=== PATIENT | female | born 1945 | race Caucasian/White ===

== ENCOUNTER 2017-01-11 17:02 | Inpatient (IN) | payer MEDICARE ==
[~2017-01-11] VITALS: Ht 152.4 cm; Wt 79.1 kg
[~2017-01-11 17:02] MED LIST: AMLO5TAB2 PO; BUPR150T73 PO; CA C1TAB63 PO; ERGO400T2 PO; LEVO200T5 PO; LISI40TA PO; MULT-257 PO; NABU500T PO; OMEG1CAP23 PO; OMEP-110 PO; POTA99TA2 PO; VIT1TABL32 PO; VITA10004 PO
[2017-01-11] MEDS ORDERED: SODIUM CHLORIDE 0.9% 1,000ML IVBOLUS ONE (17:30)
[2017-01-11 17:51] LABS: HEMATOCRIT 43.6 % (34.6-47.8); HEMOGLOBIN 14.3 g/dL (11.7-16.4); WHITE BLOOD COUNT 9.6 x10^3/uL (3.4-10)
[2017-01-11 18:02] LABS: ASPARTATE AMINO TRANSFERASE 23 U/L (15-37); BLOOD UREA NITROGEN 13 mg/dL (7-18)
[2017-01-11] MEDS ORDERED: ONDANSETRON 2MG/ML, 2ML IVPush PRN (20:30)
[2017-01-11] MEDS ORDERED: CEFTRIAXONE PMX 1GM/50ML 50 ML IV ONE (20:30)
[2017-01-11] MEDS ORDERED: LEVOTHYROXINE 100 MCG INJ IVPush ONE (20:30)
[2017-01-11] MEDS: SODIUM CHLORIDE 0.9% 1,000 ML IV SCH (21:38)
[2017-01-11] MEDS ORDERED: LEVOTHYROXINE MC SCH (22:30)
[2017-01-11] MEDS: ENOXAPARIN 40 MG/0.4 ML SQ SCH (22:45)
[2017-01-11 22:54] VITALS: BP 153/85
[2017-01-12 00:59] VITALS: BP 156/87
[2017-01-12] MEDS: HYDROmorphone 2 MG/ML, 1ML IVPush PRN ×2 (01:07→21:29)
[2017-01-12 05:07] LABS: HEMATOCRIT 38.8 % (34.6-47.8); HEMOGLOBIN 13.1 g/dL (11.7-16.4); WHITE BLOOD COUNT 8.5 x10^3/uL (3.4-10)
[2017-01-12 05:12] LABS: BLOOD UREA NITROGEN 10 mg/dL (7-18)
[2017-01-12] MEDS ORDERED: LEVOTHYROXINE 200 MCG TABLET PO SCH (06:00)
[2017-01-12] MEDS: PANTOPRAZOLE 40 MG IV IVPush SCH (07:30)
[2017-01-12] MEDS: SODIUM CHLORIDE 0.9% 1,000 ML IV SCH (08:08)
[2017-01-12 08:24] VITALS: BP 164/96
[2017-01-12] MEDS ORDERED: LEVOTHYROXINE 100 MCG INJ IVPush SCH (09:00)
[2017-01-12 15:55] VITALS: BP 142/88
[2017-01-12] MEDS: BUPROPION SR 150 MG TABLET PO SCH ×2 (16:00→21:00)
[2017-01-12 19:53] VITALS: BP 150/82
[2017-01-12] MEDS: NABUMETONE 500 MG TABLET PO SCH (21:20)
[2017-01-12] MEDS ORDERED: HYDROmorphone 1 MG/ML, 1ML ONE (21:24)
[2017-01-13] MEDS: ENOXAPARIN 40 MG/0.4 ML SQ SCH ×2 (00:05→22:30)
[2017-01-13 03:35] VITALS: BP 158/80
[2017-01-13] MEDS ORDERED: FLU VACC QS2016-17 (36MOS+)UP/PF 0.5 ML IM-VACC ONE (04:00)
[2017-01-13 05:39] LABS: HEMATOCRIT 40.1 % (34.6-47.8); HEMOGLOBIN 13.3 g/dL (11.7-16.4); WHITE BLOOD COUNT 9.4 x10^3/uL (3.4-10)
[2017-01-13 05:41] LABS: BLOOD UREA NITROGEN 18 mg/dL (7-18)
[2017-01-13] MEDS: PANTOPRAZOLE 40 MG IV IVPush SCH (07:30)
[2017-01-13 08:42] VITALS: BP 149/87
[2017-01-13] MEDS: BUPROPION SR 150 MG TABLET PO SCH ×3 (09:00→21:00)
[2017-01-13] MEDS: MULTIVITAMIN 1 TABLET PO SCH ×2 (09:00→10:11)
[2017-01-13] MEDS: LEVOTHYROXINE 100 MCG INJ IVPush SCH (10:08)
[2017-01-13] MEDS: NABUMETONE 500 MG TABLET PO SCH ×2 (10:10→21:30)
[2017-01-13] MEDS: AMLODIPINE 5 MG TABLET PO SCH (10:11)
[2017-01-13] MEDS: OMEGA-3/FISH OIL CAPSULE PO SCH (10:11)
[2017-01-13] MEDS: CHOLECALCIFEROL 400 UNITS TABLET PO SCH (10:11)
[2017-01-13 12:57] VITALS: BP 148/80
[2017-01-13] MEDS ORDERED: FLU VACC QS2017-18 (36MOS+) UP/PF 0.5 ML IM-VACC ONE (15:00)
[2017-01-13] MEDS: LISINOPRIL 20 MG TABLET PO SCH (15:49)
[2017-01-13 19:40] VITALS: BP 126/77
[2017-01-13] MEDS: HYDROmorphone 2 MG/ML, 1ML IVPush PRN (21:31)
[2017-01-14 00:55] VITALS: BP 144/84
[2017-01-14 04:57] LABS: HEMATOCRIT 39.7 % (34.6-47.8); HEMOGLOBIN 13.2 g/dL (11.7-16.4)
[2017-01-14 05:03] LABS: BLOOD UREA NITROGEN 16 mg/dL (7-18)
[2017-01-14 06:50] VITALS: BP 138/92
[2017-01-14] MEDS: PANTOPRAZOLE 40 MG IV IVPush SCH (07:30)
[2017-01-14] MEDS: NABUMETONE 500 MG TABLET PO SCH (08:45)
[2017-01-14] MEDS: OMEGA-3/FISH OIL CAPSULE PO SCH (08:45)
[2017-01-14] MEDS: MULTIVITAMIN 1 TABLET PO SCH ×2 (08:45→08:48)
[2017-01-14] MEDS: LISINOPRIL 20 MG TABLET PO SCH (08:45)
[2017-01-14] MEDS: AMLODIPINE 5 MG TABLET PO SCH (09:02)
[2017-01-14] MEDS: BUPROPION SR 150 MG TABLET PO SCH ×2 (09:02→15:32)
[2017-01-14] MEDS: LEVOTHYROXINE 100 MCG INJ IVPush SCH (09:02)
[2017-01-14] MEDS: CHOLECALCIFEROL 400 UNITS TABLET PO SCH (09:02)
[2017-01-14 15:05] VITALS: BP 131/85
[2017-01-15] MEDS ORDERED: PANTOPROZOLE 40MG TABLET PO SCH (07:30)
== END 2017-01-14 16:30 | DRG 80 ==
LOC: ED 18:23 → EDIP 20:22 → 4WST 22:07
PROVIDERS: ADMIT Internal Medicine; ATTEND Internal Medicine
DX: E03.5 Myxedema coma (principal); R53.2 Functional quadriplegia; I11.9 Hypertensive heart disease without heart failure; R62.7 Adult failure to thrive; K21.9 Gastro-esophageal reflux disease without esophagitis; M79.7 Fibromyalgia; M43.06 Spondylolysis, lumbar region; Z86.73 Personal history of transient ischemic attack (TIA), and cerebral infarction without residual deficits; Z90.49 Acquired absence of other specified parts of digestive tract; Z88.8 Allergy status to other drugs, medicaments and biological substances
CPT/HCPCS: 36415; 70450; 71010; 80048; 80053; 81001; 82040; 82533; 83735; 84439; 84443; 85025; 86140; 87040; 87086; 93005; 96361; 96365; 96375; J0696; J1170; J1650; J7030

== ENCOUNTER 2017-04-03 01:56 | Inpatient (IN) | payer MEDICARE ==
[~2017-04-03] VITALS: Ht 154.9 cm; Wt 73.7 kg
[2017-04-03] MEDS ORDERED: SODIUM CHLORIDE 0.9% 1,000 ML IV ONE (02:01)
[2017-04-03] MEDS ORDERED: MORPHINE SULFATE 4 MG/ML, 1ML ONE (02:18)
[2017-04-03] MEDS ORDERED: ONDANSETRON 2MG/ML, 2ML ONE (02:18)
[2017-04-03 02:30] LABS: HEMATOCRIT 45.9 % (34.6-47.8); HEMOGLOBIN 15.1 g/dL (11.7-16.4); WHITE BLOOD COUNT 13.8 x10^3/uL (3.4-10)
[2017-04-03] MEDS ORDERED: SODIUM CHLORIDE FLUSH 10ML SYR IVF ONE (02:30)
[2017-04-03] MEDS ORDERED: MORPHINE SULFATE 4 MG/ML, 1ML IVPush PRN (02:30)
[2017-04-03] MEDS ORDERED: ONDANSETRON 2MG/ML, 2ML IVPush ONE (02:30)
[2017-04-03] MEDS ORDERED: SODIUM CHLORIDE 0.9% 1,000ML IVBOLUS ONE (02:30)
[2017-04-03 02:47] LABS: IS PT STATUS REG ER OR PRE ER? YES
[2017-04-03 03:04] LABS: ASPARTATE AMINO TRANSFERASE 22 U/L (15-37); BLOOD UREA NITROGEN 30 mg/dL (7-18)
[2017-04-03] MEDS ORDERED: OMNIPAQUE 350 MG/ML, 100ML BOTTLE ONE (03:41)
[2017-04-03 06:49] VITALS: BP_SYST 151
[2017-04-03] MEDS ORDERED: KETOROLAC 30 MG/1 ML IVPush PRN (08:00)
[2017-04-03] MEDS ORDERED: BISACODYL 10 MG SUPP PR PRN (08:00)
[2017-04-03] MEDS ORDERED: ONDANSETRON 2MG/ML, 2ML IVPush PRN (08:00)
[2017-04-03] MEDS ORDERED: ACETAMINOPHEN 325 MG TABLET PO PRN (08:00)
[2017-04-03] MEDS ORDERED: LABETALOL 5MG/ML, 20ML IVPush PRN (08:00)
[2017-04-03 08:10] VITALS: BP 143/81
[2017-04-03] MEDS ORDERED: METHOCARBAMOL 1,000 MG in DEXTROSE 5% 100 ML IV ONE (10:00)
[2017-04-03] MEDS: VIT A C HOMEMEDPO SCH (10:25)
[2017-04-03] MEDS: LUTEIN HOMEMEDPO SCH (10:25)
[2017-04-03] MEDS: [UNRECOGNIZED DRUG - OTHER] HOMEMEDPO SCH (10:25)
[2017-04-03] MEDS: VIT K HOMEMEDPO SCH (10:25)
[2017-04-03] MEDS: VITAMIN D3 HOMEMEDPO SCH (10:25)
[2017-04-03] MEDS: CA CARBONATE HOMEMEDPO SCH (10:25)
[2017-04-03] MEDS: MINERALS HOMEMEDPO SCH (10:25)
[2017-04-03] MEDS: SODIUM CHLORIDE 0.9% 1,000 ML IV SCH ×2 (10:30→23:54)
[2017-04-03] MEDS: LEVOTHYROXINE 200 MCG TABLET PO SCH (10:31)
[2017-04-03] MEDS: MULTIVITAMIN 1 TABLET PO SCH (10:31)
[2017-04-03] MEDS: DOCUSATE 100 MG CAPSULE PO PRN ×2 (10:31→23:29)
[2017-04-03] MEDS: OMEPRAZOLE 20 MG CAPSULE.DR PO SCH (10:31)
[2017-04-03] MEDS: AMLODIPINE 5 MG TABLET PO SCH (10:31)
[2017-04-03] MEDS: ENOXAPARIN 40 MG/0.4 ML SQ SCH (10:31)
[2017-04-03] MEDS: CHOLECALCIFEROL 400 UNITS TABLET PO SCH (10:32)
[2017-04-03] MEDS: OMEGA-3/FISH OIL CAPSULE PO SCH (10:32)
[2017-04-03] MEDS: NABUMETONE 500 MG TABLET PO SCH ×2 (10:32→23:29)
[2017-04-03] MEDS: VITAMIN A 10,000 UNIT CAPSULE PO SCH (10:42)
[2017-04-03] MEDS: BUPROPION SR 150 MG TABLET PO SCH ×3 (10:43→23:29)
[2017-04-03] MEDS: LISINOPRIL 20 MG TABLET PO SCH (10:43)
[2017-04-03 13:00] VITALS: BP 115/61
[2017-04-03] MEDS: POLYETHYLENE GLYCOL 17 GM PACKET PO PRN (15:56)
[2017-04-03 15:57] VITALS: BP 151/75
[2017-04-03] MEDS ORDERED: METHOCARBAMOL 750 MG TABLET PO PRN (16:00)
[2017-04-03 20:13] VITALS: BP 128/92
[2017-04-04 02:01] VITALS: BP 166/93
[2017-04-04 05:41] LABS: HEMATOCRIT 44.4 % (34.6-47.8); HEMOGLOBIN 14.8 g/dL (11.7-16.4); WHITE BLOOD COUNT 15.2 x10^3/uL (3.4-10)
[2017-04-04 05:56] LABS: BLOOD UREA NITROGEN 15 mg/dL (7-18)
[2017-04-04] MEDS: LEVOTHYROXINE 200 MCG TABLET PO SCH (06:18)
[2017-04-04 08:10] VITALS: BP 180/95
[2017-04-04] MEDS: DOCUSATE 100 MG CAPSULE PO PRN (08:17)
[2017-04-04] MEDS: POLYETHYLENE GLYCOL 17 GM PACKET PO PRN (08:17)
[2017-04-04] MEDS: ENOXAPARIN 40 MG/0.4 ML SQ SCH (08:18)
[2017-04-04] MEDS: LISINOPRIL 20 MG TABLET PO SCH ×2 (08:18→08:23)
[2017-04-04] MEDS: CHOLECALCIFEROL 400 UNITS TABLET PO SCH (08:18)
[2017-04-04] MEDS: NABUMETONE 500 MG TABLET PO SCH (08:18)
[2017-04-04] MEDS: BUPROPION SR 150 MG TABLET PO SCH (08:18)
[2017-04-04] MEDS: VITAMIN A 10,000 UNIT CAPSULE PO SCH (08:18)
[2017-04-04] MEDS: MULTIVITAMIN 1 TABLET PO SCH (08:18)
[2017-04-04] MEDS: OMEPRAZOLE 20 MG CAPSULE.DR PO SCH (08:19)
[2017-04-04] MEDS: [UNRECOGNIZED DRUG - OTHER] HOMEMEDPO SCH (08:19)
[2017-04-04] MEDS: AMLODIPINE 5 MG TABLET PO SCH (08:19)
[2017-04-04] MEDS: CA CARBONATE HOMEMEDPO SCH (08:19)
[2017-04-04] MEDS: MINERALS HOMEMEDPO SCH (08:19)
[2017-04-04] MEDS: VIT K HOMEMEDPO SCH (08:19)
[2017-04-04] MEDS: OMEGA-3/FISH OIL CAPSULE PO SCH (08:19)
[2017-04-04] MEDS: VITAMIN D3 HOMEMEDPO SCH (08:19)
[2017-04-04] MEDS: LUTEIN HOMEMEDPO SCH (08:19)
[2017-04-04] MEDS: VIT A C HOMEMEDPO SCH (08:19)
[2017-04-04 11:02] VITALS: BP 111/78
== END 2017-04-04 12:00 | disposition home or self-care (01) | DRG 183 ==
LOC: ED 02:47 → EDIP 04:43 → 4NOR 06:28 → DCLOUNGE 04-04 11:41
PROVIDERS: ADMIT Surgery; ATTEND Surgery
DX: S22.42XA Multiple fractures of ribs, left side, initial encounter for closed fracture (principal); N17.0 Acute kidney failure with tubular necrosis; E03.9 Hypothyroidism, unspecified; E86.0 Dehydration; W18.2XXA Fall in (into) shower or empty bathtub, initial encounter; I11.9 Hypertensive heart disease without heart failure; K74.60 Unspecified cirrhosis of liver; G89.29 Other chronic pain; K21.9 Gastro-esophageal reflux disease without esophagitis; M79.7 Fibromyalgia; R29.6 Repeated falls; D72.829 Elevated white blood cell count, unspecified; R59.1 Generalized enlarged lymph nodes; R91.1 Solitary pulmonary nodule; F32.9 Major depressive disorder, single episode, unspecified; R73.9 Hyperglycemia, unspecified; Y93.89 Activity, other specified; Z90.49 Acquired absence of other specified parts of digestive tract; Y92.091 Bathroom in other non-institutional residence as the place of occurrence of the external cause; Q51.3 Bicornate uterus; Z86.73 Personal history of transient ischemic attack (TIA), and cerebral infarction without residual deficits; Z88.1 Allergy status to other antibiotic agents; Y99.8 Other external cause status
CPT/HCPCS: 36415; 74177; 76830; 80048; 80053; 81001; 83690; 84484; 85025; 86301; 96374; J1650; J1885; J2405; Q9967; J2800; J7030

== ENCOUNTER 2018-04-21 06:32 | Observation (INO) | payer MEDICARE ==
[~2018-04-21] VITALS: Ht 152.4 cm; Wt 71.0 kg
[~2018-04-21 06:32] MED LIST changes: +AMLO-150 PO; -AMLO5TAB2 PO
[2018-04-21] MEDS ORDERED: MORPHINE SULFATE 4 MG/ML, 1ML ONE (06:47)
[2018-04-21] MEDS ORDERED: SODIUM CHLORIDE FLUSH 10ML SYR IVF ONE (07:00)
[2018-04-21] MEDS ORDERED: MORPHINE SULFATE 4 MG/ML, 1ML IVPush PRN (07:00)
[2018-04-21 07:01] LABS: BASOPHILS # (AUTO) 0.05 x10^3/uL (0-0.1); BASOPHILS % (AUTO) 1 % (0-1); EOSINOPHILS # (AUTO) 0.23 x10^3/uL (0-0.4); EOSINOPHILS % (AUTO) 2 % (1-7); LYMPHOCYTES # (AUTO) 0.95 x10^3/uL (1-3.4); LYMPHOCYTES % (AUTO) 9 % (22-44); MD NO; MEAN CORPUSCULAR HEMOGLOBIN 29.2 pg (27.0-34.8); MEAN CORPUSCULAR HGB CONC 33.1 g/dL (32.4-35.8); MEAN CORPUSCULAR VOLUME 88.2 fL (80-100); MEAN PLATELET VOLUME 7.9 fL (7.4-10.4); MONOCYTES % (AUTO) 6 % (2-9); NEUTROPHILS # (AUTO) 8.79 x10^3/uL (1.8-6.8); NEUTROPHILS % (AUTO) 83 % (42-75); PLATELET COUNT 286 x10^3/uL (130-400); RED BLOOD COUNT 5.38 x10^6/uL (3.82-5.3); RED CELL DISTRIBUTION WIDTH 14.8 % (9.6-15.2)
--- NOTE | 2018-04-21 07:02 | NUR ---
given morphine iv per pt's pain vss stable given report to day samuel madison
[2018-04-21 07:11] LABS: INTERNATIONAL NORMALIZED RATIO 1.08 (0.93-1.1); PROTHROMBIN TIME 11.4 Seconds (9.6-11.5)
[2018-04-21 07:15] LABS: ALBUMIN 3.6 g/dL (3.4-5.0); ANION GAP 5 mmol/L (5-15); CALCIUM 8.7 mg/dL (8.5-10.1); CHLORIDE 105 mmol/L (98-107); CREATININE 0.93 mg/dL (0.55-1.02)
[2018-04-21] MEDS ORDERED: morphine SULFATE 10 MG/ML, 1ML IVPush PRN (10:30)
[2018-04-21] MEDS ORDERED: ONDANSETRON 2MG/ML, 2ML IVPush PRN (10:30)
[2018-04-21] MEDS ORDERED: ACETAMINOPHEN 325 MG TABLET PO PRN (10:30)
[2018-04-21] MEDS ORDERED: GABAPENTIN 300 MG CAPSULE PO PRN (10:30)
[2018-04-21] MEDS ORDERED: CYCLOBENZAPRINE 10 MG TABLET PO PRN (10:30)
[2018-04-21] MEDS ORDERED: hydrALAzine 20 MG/ML, 1ML IVPush PRN (10:30)
[2018-04-21 10:45] VITALS: BP 169/93
[2018-04-21] MEDS: ENOXAPARIN 40 MG/0.4 ML SQ SCH (11:03)
[2018-04-21 11:32] LABS: FREE T4 (FREE THYROXINE) 0.55 ng/dL (0.76-1.46)
[2018-04-21 13:26] VITALS: BP 127/81
[2018-04-21] MEDS: BUPROPION SR 150 MG TABLET PO SCH ×2 (16:16→20:16)
[2018-04-21 19:15] VITALS: BP 102/64
[2018-04-22 04:21] VITALS: BP 147/81
[2018-04-22 06:36] LABS: ALBUMIN 3.5 g/dL (3.4-5.0); ANION GAP 4 mmol/L (5-15); CALCIUM 8.8 mg/dL (8.5-10.1); CHLORIDE 104 mmol/L (98-107)
[2018-04-22 06:40] LABS: ALANINE AMINOTRANSFERASE 19 U/L (12-78); ALKALINE PHOSPHATASE 95 U/L (45-117); BILIRUBIN,TOTAL 0.7 mg/dL (0.2-1.0); TOTAL PROTEIN 6.7 g/dL (6.4-8.2)
[2018-04-22 06:41] LABS: BASOPHILS # (AUTO) 0.03 x10^3/uL (0-0.1); BASOPHILS % (AUTO) 0 % (0-1); EOSINOPHILS # (AUTO) 0.13 x10^3/uL (0-0.4); EOSINOPHILS % (AUTO) 1 % (1-7); LYMPHOCYTES # (AUTO) 0.98 x10^3/uL (1-3.4); LYMPHOCYTES % (AUTO) 7 % (22-44); MD NO; MEAN CORPUSCULAR HEMOGLOBIN 29.4 pg (27.0-34.8); MEAN CORPUSCULAR HGB CONC 33.3 g/dL (32.4-35.8); MEAN CORPUSCULAR VOLUME 88.1 fL (80-100); MEAN PLATELET VOLUME 8.5 fL (7.4-10.4); MONOCYTES # (AUTO) 0.85 x10^3/uL (0.2-0.8); MONOCYTES % (AUTO) 6 % (2-9); NEUTROPHILS # (AUTO) 11.64 x10^3/uL (1.8-6.8); NEUTROPHILS % (AUTO) 85 % (42-75); PLATELET COUNT 273 x10^3/uL (130-400); RED BLOOD COUNT 5.01 x10^6/uL (3.82-5.3); RED CELL DISTRIBUTION WIDTH 14.9 % (9.6-15.2)
[2018-04-22 06:45] VITALS: BP 150/75
[2018-04-22] MEDS ORDERED: LEVOTHYROXINE 100 MCG TABLET ONE (07:22)
[2018-04-22] MEDS: BUPROPION SR 150 MG TABLET PO SCH ×3 (07:30→20:45)
[2018-04-22] MEDS ORDERED: ERGOCALCIFEROL 50,000 UNIT CAPSULE PO SCH (07:30)
[2018-04-22] MEDS: CALCIUM/VITAMIN D3 250-125 TABLET PO SCH (07:30)
[2018-04-22] MEDS: MULTIVITAMIN 1 TABLET PO SCH (07:30)
[2018-04-22] MEDS: AMLODIPINE 5 MG TABLET PO SCH (07:31)
[2018-04-22] MEDS: LISINOPRIL 20 MG TABLET PO SCH (07:31)
[2018-04-22] MEDS: OMEGA-3/FISH OIL CAPSULE PO SCH (07:31)
[2018-04-22] MEDS ORDERED: OMNIPAQUE 350 MG/ML, 75ML BOTTLE ONE (08:46)
[2018-04-22] MEDS ORDERED: LEVOTHYROXINE 200 MCG TABLET PO SCH (09:00)
[2018-04-22] MEDS ORDERED: CHOLECALCIFEROL 400 UNITS TABLET PO SCH (09:00)
[2018-04-22] MEDS: ENOXAPARIN 40 MG/0.4 ML SQ SCH (11:05)
[2018-04-22 13:41] VITALS: BP 142/72
[2018-04-22 15:53] LABS: MICROSCOPIC INDICATED
[2018-04-22 16:13] LABS: CULTURE INDICATED? NO
[2018-04-22 19:46] VITALS: BP 130/78
[2018-04-23 02:17] VITALS: BP 138/76
[2018-04-23 05:49] LABS: BASOPHILS # (AUTO) 0.01 x10^3/uL (0-0.1); BASOPHILS % (AUTO) 0 % (0-1); EOSINOPHILS % (AUTO) 3 % (1-7); LYMPHOCYTES # (AUTO) 1.34 x10^3/uL (1-3.4); LYMPHOCYTES % (AUTO) 10 % (22-44); MD NO; MEAN CORPUSCULAR HEMOGLOBIN 29.1 pg (27.0-34.8); MEAN CORPUSCULAR HGB CONC 33.2 g/dL (32.4-35.8); MEAN CORPUSCULAR VOLUME 87.8 fL (80-100); MEAN PLATELET VOLUME 7.9 fL (7.4-10.4); MONOCYTES # (AUTO) 1.05 x10^3/uL (0.2-0.8); MONOCYTES % (AUTO) 8 % (2-9); NEUTROPHILS # (AUTO) 10.53 x10^3/uL (1.8-6.8); NEUTROPHILS % (AUTO) 79 % (42-75); PLATELET COUNT 287 x10^3/uL (130-400); RED BLOOD COUNT 5.07 x10^6/uL (3.82-5.3); RED CELL DISTRIBUTION WIDTH 15.2 % (9.6-15.2)
[2018-04-23 07:29] VITALS: BP 141/83
[2018-04-23] MEDS ORDERED: LEVOTHYROXINE 75 MCG TABLET PO SCH (09:00)
[2018-04-23] MEDS: ENOXAPARIN 40 MG/0.4 ML SQ SCH (11:36)
[2018-04-23] MEDS ORDERED: FENTANYL PF 100 MCG/2ML ONE (11:49)
[2018-04-23] MEDS ORDERED: MIDAZOLAM 1 MG/ML, 5ML ONE (11:50)
[2018-04-23] MEDS ORDERED: NALOXONE 1 MG/ML, 2ML ONE (11:50)
[2018-04-23] MEDS ORDERED: FLUMAZENIL 0.1 MG/1 ML, 5ML ONE (11:50)
[2018-04-23] MEDS ORDERED: GADOBUTROL 7.5 MMOL/7.5 ML PFS ONE (13:18)
[2018-04-23 13:45] VITALS: BP 146/84
[2018-04-23] MEDS: LISINOPRIL 20 MG TABLET PO SCH (14:06)
[2018-04-23] MEDS: AMLODIPINE 5 MG TABLET PO SCH (14:06)
[2018-04-23] MEDS: BUPROPION SR 150 MG TABLET PO SCH ×3 (14:06→20:14)
[2018-04-23] MEDS: MULTIVITAMIN 1 TABLET PO SCH (14:06)
[2018-04-23] MEDS: CALCIUM/VITAMIN D3 250-125 TABLET PO SCH (14:08)
[2018-04-23] MEDS: OMEGA-3/FISH OIL CAPSULE PO SCH (14:17)
[2018-04-23] MEDS ORDERED: ERGOCALCIFEROL 50,000 UNIT CAPSULE PO SCH (15:00)
[2018-04-23] MEDS ORDERED: KETOROLAC 30 MG/1 ML IVPush PRN (15:00)
[2018-04-23 16:12] LABS: HCT (SEDRATE) 44.9 % (34.6-47.8)
[2018-04-23] MEDS: LIDODERM 5% PATCH TD SCH (17:25)
[2018-04-23 18:49] VITALS: BP 120/83
[2018-04-24 01:16] VITALS: BP 120/73
[2018-04-24 04:42] LABS: BASOPHILS # (AUTO) 0.03 x10^3/uL (0-0.1); BASOPHILS % (AUTO) 0 % (0-1); EOSINOPHILS % (AUTO) 4 % (1-7); LYMPHOCYTES # (AUTO) 1.27 x10^3/uL (1-3.4); LYMPHOCYTES % (AUTO) 9 % (22-44); MD NO; MEAN CORPUSCULAR HEMOGLOBIN 29.4 pg (27.0-34.8); MEAN PLATELET VOLUME 7.9 fL (7.4-10.4); MONOCYTES # (AUTO) 0.94 x10^3/uL (0.2-0.8); MONOCYTES % (AUTO) 7 % (2-9); NEUTROPHILS # (AUTO) 11.02 x10^3/uL (1.8-6.8); NEUTROPHILS % (AUTO) 80 % (42-75); PLATELET COUNT 287 x10^3/uL (130-400); RED CELL DISTRIBUTION WIDTH 15.2 % (9.6-15.2)
[2018-04-24] MEDS ORDERED: LEVOTHYROXINE 100 MCG TABLET ONE (05:12)
[2018-04-24] MEDS: LEVOTHYROXINE 200 MCG TABLET PO SCH (05:14)
[2018-04-24 09:03] VITALS: BP 128/79
[2018-04-24] MEDS: MULTIVITAMIN 1 TABLET PO SCH (09:56)
[2018-04-24] MEDS: BUPROPION SR 150 MG TABLET PO SCH ×3 (09:56→21:03)
[2018-04-24] MEDS: AMLODIPINE 5 MG TABLET PO SCH (09:56)
[2018-04-24] MEDS: OMEGA-3/FISH OIL CAPSULE PO SCH (09:56)
[2018-04-24] MEDS: CALCIUM/VITAMIN D3 250-125 TABLET PO SCH (09:57)
[2018-04-24] MEDS: LISINOPRIL 20 MG TABLET PO SCH (09:57)
[2018-04-24] MEDS: ENOXAPARIN 40 MG/0.4 ML SQ SCH (11:20)
[2018-04-24 12:47] VITALS: BP 135/79
[2018-04-24] MEDS: LIDODERM 5% PATCH TD SCH (16:31)
[2018-04-24 19:58] VITALS: BP 127/76
[2018-04-25 01:22] VITALS: BP 117/73
[2018-04-25] MEDS ORDERED: LEVOTHYROXINE 100 MCG TABLET ONE (05:00)
[2018-04-25] MEDS: LEVOTHYROXINE 200 MCG TABLET PO SCH (05:01)
[2018-04-25] MEDS ORDERED: BISACODYL 10 MG SUPP PR PRN (08:30)
[2018-04-25] MEDS ORDERED: SENNA/DOCUSATE TABLET PO SCH (09:00)
[2018-04-25] MEDS: OMEGA-3/FISH OIL CAPSULE PO SCH (09:49)
[2018-04-25] MEDS: MULTIVITAMIN 1 TABLET PO SCH (09:50)
[2018-04-25] MEDS: BUPROPION SR 150 MG TABLET PO SCH ×2 (09:50→15:32)
[2018-04-25] MEDS: LISINOPRIL 20 MG TABLET PO SCH (09:50)
[2018-04-25] MEDS: CALCIUM/VITAMIN D3 250-125 TABLET PO SCH (09:50)
[2018-04-25] MEDS: AMLODIPINE 5 MG TABLET PO SCH (09:50)
[2018-04-25 12:08] VITALS: BP 125/85
[2018-04-25] MEDS: ENOXAPARIN 40 MG/0.4 ML SQ SCH (12:35)
[2018-04-25] MEDS ORDERED: SENN1TAB8 PO (12:40)
[2018-04-25] MEDS ORDERED: ERGO500017 PO (12:40)
[2018-04-25] MEDS ORDERED: LISI-170 PO (12:40)
[2018-04-25] MEDS: LIDODERM 5% PATCH TD SCH (15:32)
== END 2018-04-25 15:40 ==
LOC: ED 07:30 → EDIP 08:56 → INTOOBSV 08:56 → 4NOR 10:25
PROVIDERS: ADMIT Hospitalist; ATTEND Hospitalist
DX: M25.552 Pain in left hip (principal); M43.16 Spondylolisthesis, lumbar region; R53.81 Other malaise; E55.9 Vitamin D deficiency, unspecified; E03.9 Hypothyroidism, unspecified; D72.829 Elevated white blood cell count, unspecified; I10 Essential (primary) hypertension; W18.30XA Fall on same level, unspecified, initial encounter; X58.XXXA Exposure to other specified factors, initial encounter; Y93.89 Activity, other specified; Y92.89 Other specified places as the place of occurrence of the external cause; Y99.8 Other external cause status; Z86.73 Personal history of transient ischemic attack (TIA), and cerebral infarction without residual deficits; Z91.19 Patient's noncompliance with other medical treatment and regimen; Z23 Encounter for immunization
CPT/HCPCS: 36415; 71045; 71260; 72131; 72192; 73502; 73723; 80048; 80053; 81001; 82040; 82306; 84145; 84439; 84443; 85025; 85610; 85651; 85730; 86140; 90656; 93005; 96372; 96374; 97162; 97166; 97530; 99156; 99157; 99284; A9585; G0008; G0378; G8978; G8979; G8980; J1650; J2250; J3010; Q9967; J2310